=== PATIENT | male | born 1960 | race Caucasian/White ===

== ENCOUNTER 2016-10-25 12:44 | Emergency (ER) | payer MEDICARE ==
[2016-10-25 13:24] VITALS: BP 116/60
[2016-10-25 13:34] LABS: Hematocrit 40 % (42-52); Hemoglobin 13.8 g/dl (14.0-18.0); Mean Corpuscular HGB Conc 34 g/dl (31-36); Mean Corpuscular Hemoglobin 32 pg (27-31); Mean Corpuscular Volume 94 fL (80-94); Mean Platelet Volume 9 um3 (7.4-10.4); Red Blood Count 4.31 10^6/ul (4.0-5.4); Red Cell Distribution Width 12 % (10.5-15); White Blood Count 4.6 10^3/ul (3.5-10.8)
[2016-10-25 13:50] LABS: Albumin 4.1 g/dL (3.2-5.2); BUN/Creatinine Ratio 12.6 (8-20); EGFR African American 95.7 (>60); EGFR Non-African American 74.4 (>60); Globulin 2.3 g/dL (2-4); Potassium 3.6 mmol/L (3.5-5.0); Total Bilirubin 0.5 mg/dL (0.2-1.0); Total Protein 6.4 g/dL (6.4-8.9)
[2016-10-25 13:52] LABS: Troponin I 0.01 ng/mL (<0.04)
--- NOTE | 2016-10-25 14:05 | RAD ---
INDICATION: Shortness of breath. COMPARISON: Comparison is made with a prior chest x-ray study from October 28, 2013. TECHNIQUE: Dual-energy PA and lateral views of the chest were obtained. FINDINGS: The heart is within normal limits in size. Mediastinal and hilar contours appear within normal limits. The lungs are clear. No pleural effusion is present. IMPRESSION: NO EVIDENCE FOR ACTIVE CARDIOPULMONARY DISEASE.
[2016-10-25] MEDS ORDERED: Aspirin Low Dose CHEW TAB* 81 MG PO ONE (14:17)
[2016-10-25] MEDS ORDERED: Albuterol/Ipratropium NEB.SOL* Albuterol 2.5 MG/Ipratropium 0.5 MG 3 ML INH ONE (14:47)
[2016-10-25] MEDS ORDERED: Albuterol HFA INHALER* 8 gm MDI INH ONE (15:10)
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
--- NOTE | 2016-12-13 10:59 | ED ---
Vargas Ford Matthew, scribed for Melody Martinez MD on 10/25/16 at 1248 . Progress - Progress Note Progress Note: A 56 y/o male presents to the ED with SOB. Describes SOB with a full feeling in his lungs. Associated Palpitations Coughing Moderately ill appearing Lungs CTA NO Hx of [place] or asthma The patient was brought to room 18 to be seen by a provider. Course/Dx - Diagnoses Provider Diagnoses: Bronchospasm The documentation as recorded by the amarilisibVargas sesay Matthew accurately reflects the service I personally performed and the decisions made by me, Melody Martinez MD.
== END 2016-10-25 16:02 | disposition home or self-care (01) ==
LOC: ED 12:44
DX: J98.01 Acute bronchospasm (principal); E07.9 Disorder of thyroid, unspecified; N40.0 Benign prostatic hyperplasia without lower urinary tract symptoms; Z88.5 Allergy status to narcotic agent; M62.838 Other muscle spasm
CPT/HCPCS: 36415; 71020; 80053; 83605; 84484; 85025; 93005; 94640; 94760; 99282; A9270-GY